=== PATIENT | male | born 1980 | race Caucasian/White ===

== ENCOUNTER 2016-04-20 11:55 | Inpatient (IN) | payer OTHER ==
[~2016-04-20] VITALS: Ht 175.3 cm; Wt 75.8 kg
[~2016-04-20 11:55] MED LIST: ASPIR-LOW81 MG PO; BETADINE OINT 101 GM EXT; BRILINTA 90 MG90 MG PO; LEVEMIR100 UNIT/1 SQ; LIPITOR TAB 2020 MG PO; ORBACTIV400 MG IV; PERCOCET 5-3251 EACH PO; PLAVIX 75 MG TA75 MG PO; VITAMIN C 500500 MG PO
[2016-04-20] MEDS ORDERED: BACTRIM DS TAB1 EACH PO (15:12)
[2016-04-20] MEDS ORDERED: PLETAL 100 MG100 MG PO (15:25)
[2016-04-20] MEDS ORDERED: CLINDAMYCIN HC300 MG PO (15:26)
[2016-04-20 17:14] LABS: HEMOGLOBIN 14.2 gm/dl (14.0-17.5); RED BLOOD COUNT 4.43 M/UL (4.20-5.50); WHITE BLOOD COUNT 7.3 K/UL (4.5-11.0)
[2016-04-20 17:52] LABS: BUN/CREATININE RATIO 11 (0-10)
[2016-04-21 06:05] LABS: HEMOGLOBIN 13.3 gm/dl (14.0-17.5); RED BLOOD COUNT 4.16 M/UL (4.20-5.50); WHITE BLOOD COUNT 8.9 K/UL (4.5-11.0)
[2016-04-21 06:22] LABS: BUN/CREATININE RATIO 16 (0-10)
[2016-04-22 05:11] LABS: BUN/CREATININE RATIO 11 (0-10)
[2016-04-23 05:30] LABS: BUN/CREATININE RATIO 11 (0-10)
[2016-04-24 04:46] LABS: HEMOGLOBIN 12.9 gm/dl (14.0-17.5); RED BLOOD COUNT 4.07 M/UL (4.20-5.50); WHITE BLOOD COUNT 8.5 K/UL (4.5-11.0)
[2016-04-24 05:02] LABS: BUN/CREATININE RATIO 11 (0-10)
[2016-04-27] MEDS ORDERED: LEVAQUIN750 MG PO (12:33)
[2016-04-27] MEDS ORDERED: NORCO 7.5-3251 EACH PO (12:34)
[2016-04-27] MEDS ORDERED: LISINOPRIL5 MG PO (12:35)
[2016-04-27] MEDS ORDERED: HABITROL 21 MG P1 EA TD (12:40)
[2016-04-27] MEDS ORDERED: NOVOLOG 10100 UNITS1 SQ (12:41)
[2016-04-27] MEDS ORDERED: PLAVIX 75 MG TA75 MG PO (12:42)
== END 2016-04-27 14:04 | disposition home or self-care (01) | DRG 464 ==
LOC: MED SURG 4 11:55
PROVIDERS: Physician Assistant; ADMIT Internal Medicine
PROC: B41G1ZZ Fluoroscopy of Left Lower Extremity Arteries using Low Osmolar Contrast (ICD-10-PCS; principal; 2016-04-22)
PROC: 0QBP0ZZ Excision of Left Metatarsal, Open Approach (ICD-10-PCS; 2016-04-25)
PROC: 0JBR0ZZ Excision of Left Foot Subcutaneous Tissue and Fascia, Open Approach (ICD-10-PCS; 2016-04-25)
DX: T87.54 Necrosis of amputation stump, left lower extremity (principal); I70.268 Atherosclerosis of native arteries of extremities with gangrene, other extremity; M87.878 Other osteonecrosis, left toe(s); T40.2X5A Adverse effect of other opioids, initial encounter; R11.0 Nausea; E11.9 Type 2 diabetes mellitus without complications; E87.6 Hypokalemia; E78.5 Hyperlipidemia, unspecified; I10 Essential (primary) hypertension; Y92.230 Patient room in hospital as the place of occurrence of the external cause; Z89.412 Acquired absence of left great toe; Z87.891 Personal history of nicotine dependence; Z79.82 Long term (current) use of aspirin; Z79.4 Long term (current) use of insulin; Z79.899 Other long term (current) drug therapy
CPT/HCPCS: 36245; 36415; 73630; 73718; 75630; 80048; 80053; 80202; 82962; 83735; 84132; 85025; 85027; 86140; 87070; 87205; 93926; J1200; J1644; J1650; J2250; J2270; J2405; J2543; J2795; J3010; J3370; J7040; J7070; J7120; Q4133; Q9965

== ENCOUNTER 2016-08-04 11:21 | Inpatient (IN) | payer OTHER ==
[~2016-08-04] VITALS: Ht 175.3 cm; Wt 76.7 kg
[~2016-08-04 11:21] MED LIST changes: +BACTRIM DS TAB1 EACH PO; +CLINDAMYCIN HC300 MG PO; +HABITROL 21 MG P1 EA TD; +LEVAQUIN750 MG PO; +LISINOPRIL5 MG PO; +NORCO 7.5-3251 EACH PO; +NOVOLOG 10100 UNITS1 SQ; +PLETAL 100 MG100 MG PO
[2016-08-04 14:51] LABS: HEMOGLOBIN 12.6 gm/dl (14.0-17.5); RED BLOOD COUNT 4.03 M/UL (4.20-5.50); WHITE BLOOD COUNT 11.3 K/UL (4.5-11.0)
[2016-08-04 15:11] LABS: BUN/CREATININE RATIO 17 (0-10)
[2016-08-04] MEDS ORDERED: LISINOPRIL5 MG PO (21:17)
[2016-08-04] MEDS ORDERED: BACTRIM DS TAB1 EACH PO (21:17)
[2016-08-05 05:30] LABS: HEMOGLOBIN 12.6 gm/dl (14.0-17.5); RED BLOOD COUNT 3.97 M/UL (4.20-5.50); WHITE BLOOD COUNT 9.8 K/UL (4.5-11.0)
[2016-08-05 06:00] LABS: BUN/CREATININE RATIO 12 (0-10)
[2016-08-07 05:29] LABS: RED BLOOD COUNT 3.8 M/UL (4.20-5.50); WHITE BLOOD COUNT 10.4 K/UL (4.5-11.0)
[2016-08-07 05:48] LABS: BUN/CREATININE RATIO 11 (0-10)
[2016-08-07 15:26] LABS: HEMOGLOBIN 11.8 gm/dl (14.0-17.5)
[2016-08-07 19:46] LABS: HEMOGLOBIN 11.6 gm/dl (14.0-17.5); RED BLOOD COUNT 3.67 M/UL (4.20-5.50); WHITE BLOOD COUNT 11.7 K/UL (4.5-11.0)
[2016-08-07 19:56] LABS: BUN/CREATININE RATIO 8 (0-10)
[2016-08-07 23:42] LABS: HEMOGLOBIN 11.8 gm/dl (14.0-17.5)
[2016-08-08 09:41] LABS: HEMOGLOBIN 11.7 gm/dl (14.0-17.5); RED BLOOD COUNT 3.7 M/UL (4.20-5.50); WHITE BLOOD COUNT 9.8 K/UL (4.5-11.0)
[2016-08-08 09:59] LABS: BUN/CREATININE RATIO 9 (0-10)
[2016-08-10] MEDS ORDERED: LIPITOR TAB 2020 MG PO (18:17)
[2016-08-10] MEDS ORDERED: ASPIRIN EC81 MG PO (18:17)
[2016-08-12 06:04] LABS: HEMOGLOBIN 11.4 gm/dl (14.0-17.5); RED BLOOD COUNT 3.58 M/UL (4.20-5.50); WHITE BLOOD COUNT 10.9 K/UL (4.5-11.0)
[2016-08-12 06:18] LABS: BUN/CREATININE RATIO 17 (0-10)
== END 2016-08-14 10:00 | DRG 464 ==
LOC: M/S 12:10
PROVIDERS: Internal Medicine; Nurse Practitioner; Physician Assistant Medical; Podiatrist Foot & Ankle Surgery; ADMIT Family Medicine
PROC: 047S3ZZ Dilation of Left Posterior Tibial Artery, Percutaneous Approach (ICD-10-PCS; 2016-08-07)
PROC: 047Q3DZ Dilation of Left Anterior Tibial Artery with Intraluminal Device, Percutaneous Approach (ICD-10-PCS; 2016-08-07)
PROC: 047U3ZZ Dilation of Left Peroneal Artery, Percutaneous Approach (ICD-10-PCS; 2016-08-07)
PROC: 047W3ZZ Dilation of Left Foot Artery, Percutaneous Approach (ICD-10-PCS; 2016-08-07)
PROC: B41D1ZZ Fluoroscopy of Aorta and Bilateral Lower Extremity Arteries using Low Osmolar Contrast (ICD-10-PCS; 2016-08-07)
PROC: 0QBP0ZZ Excision of Left Metatarsal, Open Approach (ICD-10-PCS; 2016-08-12)
PROC: 3E0V329 Introduction of Other Anti-infective into Bones, Percutaneous Approach (ICD-10-PCS; 2016-08-12)
PROC: 2W1TX6Z Compression of Left Foot using Pressure Dressing (ICD-10-PCS; 2016-08-12)
PROC: 0JBR0ZZ Excision of Left Foot Subcutaneous Tissue and Fascia, Open Approach (ICD-10-PCS; principal; 2016-08-12 07:45)
DX: T87.44 Infection of amputation stump, left lower extremity (principal); M86.672 Other chronic osteomyelitis, left ankle and foot; I70.262 Atherosclerosis of native arteries of extremities with gangrene, left leg; I70.92 Chronic total occlusion of artery of the extremities; L02.612 Cutaneous abscess of left foot; E11.52 Type 2 diabetes mellitus with diabetic peripheral angiopathy with gangrene; L03.116 Cellulitis of left lower limb; L76.32 Postprocedural hematoma of skin and subcutaneous tissue following other procedure; Y83.5 Amputation of limb(s) as the cause of abnormal reaction of the patient, or of later complication, without mention of misadventure at the time of the procedure; E11.69 Type 2 diabetes mellitus with other specified complication; E11.65 Type 2 diabetes mellitus with hyperglycemia; J44.9 Chronic obstructive pulmonary disease, unspecified; D64.9 Anemia, unspecified; I10 Essential (primary) hypertension; E78.5 Hyperlipidemia, unspecified; T87.81 Dehiscence of amputation stump; E11.621 Type 2 diabetes mellitus with foot ulcer; L97.529 Non-pressure chronic ulcer of other part of left foot with unspecified severity; B96.5 Pseudomonas (aeruginosa) (mallei) (pseudomallei) as the cause of diseases classified elsewhere; B96.89 Other specified bacterial agents as the cause of diseases classified elsewhere; Y83.8 Other surgical procedures as the cause of abnormal reaction of the patient, or of later complication, without mention of misadventure at the time of the procedure; Y71.3 Surgical instruments, materials and cardiovascular devices (including sutures) associated with adverse incidents; Y92.239 Unspecified place in hospital as the place of occurrence of the external cause; F17.210 Nicotine dependence, cigarettes, uncomplicated; Z91.14 Patient's other noncompliance with medication regimen; Z91.19 Patient's noncompliance with other medical treatment and regimen; Z79.4 Long term (current) use of insulin; Z79.899 Other long term (current) drug therapy; Z79.82 Long term (current) use of aspirin; Z86.14 Personal history of Methicillin resistant Staphylococcus aureus infection; Z83.3 Family history of diabetes mellitus
CPT/HCPCS: 36245; 36415; 73630; 73718; 75630; 80048; 80053; 80202; 82962; 83735; 85014; 85018; 85025; 85027; 85347; 86140; 87040; 87070; 87077; 87186; 87205; 93005; 93926; C1713; C1725; C1769; C1876; G0379; J1644; J1885; J2185; J2250; J2270; J2550; J2795; J3010; J3370; J7030; J7040; J7050; J7070; J7120; Q9965